=== PATIENT | female | born 2000 | race Caucasian/White ===

== ENCOUNTER 2022-02-13 06:17 | Day surgery (SDC) | payer BC ==
[~2022-02-13] VITALS: Ht 147.3 cm; Wt 130.8 kg
[~2022-02-13 06:17] MED LIST: IBUP400; ONDA4ODT MM
--- NOTE | 2022-02-13 06:59 | NUR ---
02/13/22 0659 More Anderson 2 IV ATTEMPTS BY ALEJANDRINA, 1ST IN L FOREARM INFILTRATED, 2ND IN L AC WAS SUCCESSFUL
[2022-02-13] MEDS ORDERED: METF500 PO (07:02)
== END 2022-02-13 08:42 | disposition home or self-care (01) ==
LOC: ORSCSDS 06:17
PROVIDERS: Obstetrics & Gynecology
PROC: 0UDB8ZX Extraction of Endometrium, Via Natural or Artificial Opening Endoscopic, Diagnostic (ICD-10-PCS; principal; 2022-02-13 07:30)
PROC: 0UB98ZX Excision of Uterus, Via Natural or Artificial Opening Endoscopic, Diagnostic (ICD-10-PCS; principal; 2022-02-13 07:30)
DX: N84.0 Polyp of corpus uteri (principal); E28.2 Polycystic ovarian syndrome; E66.01 Morbid (severe) obesity due to excess calories; Z68.41 Body mass index [BMI] 40.0-44.9, adult; F41.9 Anxiety disorder, unspecified; Z79.899 Other long term (current) drug therapy
CPT/HCPCS: 88305; A9270; J1100; J1885; J2250; J2405; J2704; J2765; J3010; J7120

== ENCOUNTER → 2024-08-29 | Outpatient (CLI) | payer BC ==
[~2024-08-29] MED LIST changes: +METF500 PO
== END ==
LOC: LAB SHORT 17:16 → LAB 17:16
DX: O09.93 Supervision of high risk pregnancy, unspecified, third trimester (principal); Z3A.00 Weeks of gestation of pregnancy not specified
CPT/HCPCS: 87081; 87150

== ENCOUNTER → 2024-09-13 | Outpatient (CLI) | payer BC ==
[2024-09-13 15:35] LABS: Bacterial Vaginosis PCR Negative (NEGATIVE); Candida Group, PCR NOT DETECTED (NOT DETECT); Candida glabrata-krusei, PCR NOT DETECTED (NOT DETECT)
== END ==
LOC: LAB 12:19 → LAB SHORT 12:19
PROVIDERS: Obstetrics & Gynecology
DX: O09.93 Supervision of high risk pregnancy, unspecified, third trimester (principal)
CPT/HCPCS: 87481; 87661; 87801

== ENCOUNTER 2024-09-19 19:58 | Inpatient (IN) | payer BC ==
[~2024-09-19] VITALS: Ht 172.7 cm; Wt 152.2 kg
[2024-09-19] MEDS ORDERED: Methylergonovine Maleate 0.2MG / ML 1ML Amp IM PRN (20:25)
[2024-09-19] MEDS ORDERED: Misoprostol 200 MCG Tab PR PRN (20:25)
[2024-09-19] MEDS ORDERED: OXYTOCIN/RINGER'S LACTATE 500 ML IV PRN (20:25)
[2024-09-19] MEDS ORDERED: FentaNYL 2mcg/ml-Bup 0.1% Epd 250 ML EPI PRN (20:25)
[2024-09-19] MEDS ORDERED: Oxytocin 10 Unit / ML Vial IM PRN (20:25)
[2024-09-19] MEDS ORDERED: OXYTOCIN/RINGER'S LACTATE 500 ML IV SCH (20:25)
[2024-09-19] MEDS ORDERED: Lactated Ringer's 1,000 ML IV PRN ×4 (20:25→20:30)
[2024-09-19] MEDS ORDERED: Tranexamic Acid 100 ML IV SCH (20:25)
[2024-09-19] MEDS ORDERED: Misoprostol 25 MCG Tab VAG PRN (20:25)
[2024-09-19] MEDS ORDERED: Carboprost Tromethamine 250 MCG/ML 1ML Amp IM PRN (20:25)
[2024-09-19] MEDS ORDERED: ePHEDrine Sulfate 50 MG/ML 1ML Injection XX PRN (20:25)
[2024-09-19] MEDS ORDERED: Misoprostol 200 MCG Tab BC PRN (20:25)
[2024-09-19] MEDS ORDERED: Ondansetron HCl 2 MG / ML 2ML Vial IV PRN (20:35)
[2024-09-19] MEDS ORDERED: Calcium Carbonate 500 MG Tab Chew PO PRN (20:35)
[2024-09-19] MEDS ORDERED: Acetaminophen 500 MG Tab PO PRN (20:35)
[2024-09-19] MEDS ORDERED: FentaNYL Citrate 50 MCG/ML 2 ML Injection IV PRN (20:40)
[2024-09-19 23:05] VITALS: BP 129/58
[2024-09-19 23:29] LABS: BASOPHILS ABSOLUTE AUTO 0.03 K/mm3 (0.00-0.23); BASOPHILS PERCENT AUTO 0 % (0-2); EOSINOPHILS ABSOLUTE AUTO 0.06 K/mm3 (0.00-0.68); EOSINOPHILS PERCENT AUTO 1 % (0-6); Hematocrit 41.4 % (33.0-51.0); Hemoglobin 13.8 g/dL (11.5-16.0); IMMATURE GRAN ABSOLUTE AUTO 0.04 K/mm3 (0.00-0.10); IMMATURE GRAN PERCENT AUTO 0 % (0-1); LYMPHOCYTES ABSOLUTE AUTO 2.01 K/mm3 (0.84-5.20); LYMPHOCYTES PERCENT AUTO 21 % (21-46); MONOCYTES ABSOLUTE AUTO 0.37 K/mm3 (0.16-1.47); MONOCYTES PERCENT AUTO 4 % (4-13); Mean Corpuscular HGB 29.3 pg (26.0-34.0); Mean Corpuscular HGB Conc 33.3 g/dL (31.5-36.5); Mean Corpuscular Volume 88 fL (80-100); Mean Platelet Volume 10.6 fL (9.1-12.4); NEUTROPHILS ABSOLUTE AUTO 7.16 K/mm3 (1.96-9.15); NEUTROPHILS PERCENT AUTO 74 % (41-73); Platelet Count 277 K/mm3 (150-400); RDW Coefficient Variation 14.7 % (11.7-14.2); RDW Standard Deviation 47.6 fL (35.1-46.3); Red Blood Cell Count 4.71 M/mm3 (3.80-5.20); White Blood Cell Count 9.67 K/mm3 (4.00-11.30)
[2024-09-20] VITALS (24 sets, daily range): BP systolic 98–142; BP diastolic 51–120
[2024-09-20] MEDS ORDERED: Penicillin G Potassium 5,000,000 UNITS in NS 250 ML IV ONE
[2024-09-20] MEDS ORDERED: Citric Acid/Sodium Citrate 30 ML BTL PO PRN (02:30)
[2024-09-20] MEDS ORDERED: CeFAZolin Sodium 3,000 MG in NS 100 ML IV SCH (02:30)
[2024-09-20] MEDS ORDERED: Metoclopramide HCl 5MG / ML 2ML Vial IV PRN ×2 (02:35→08:40)
[2024-09-20] MEDS ORDERED: Penicillin G Potassium 2,500,000 UNITS in Dextrose 5% 100 ML IV SCH (04:00)
[2024-09-20] MEDS ORDERED: Terbutaline Sulfate 1MG / ML 1 ML Amp ONE (05:59)
[2024-09-20] MEDS ORDERED: Terbutaline Sulfate 1MG / ML 1 ML Amp SC ONE (06:00)
[2024-09-20] MEDS ORDERED: Sodium Bicarb 8.4% 1 MEQ/ML 50 ML Vial ONE (07:41)
[2024-09-20] MEDS ORDERED: Lidocaine HCl 2% 10 ML SDA ONE (07:41)
[2024-09-20] MEDS ORDERED: EpiNEPhrine 1 MG/1 ML 1ML Vial ONE (07:42)
[2024-09-20] MEDS ORDERED: Phenylephrine HCl 100 MCG/ML-NS 10MLSYR (1MG/10ML) ONE (08:01)
[2024-09-20] MEDS ORDERED: ePHEDrine Sulfate 50 MG/ML 1ML Injection ONE (08:04)
[2024-09-20] MEDS ORDERED: Oxytocin 10 Unit / ML Vial ONE (08:09)
--- NOTE | 2024-09-20 08:19 | NUR ---
09/20/24 0819 Ayana Marion VIABLE MALE BORN AT 0808 WITH DOUBLE NUCHAL. APGARS 9/9. WEIGHT [id number]. SEE LABOR RECORD. CORD BLOOD GIVEN TO KANE CACERES AND DR NATARAJAN DECLINED CORD GASES.
[2024-09-20] MEDS ORDERED: Ondansetron HCl 2 MG / ML 2ML Vial IV PRN ×2 (08:40→09:00)
[2024-09-20] MEDS ORDERED: FentaNYL Citrate 50 MCG/ML 2 ML Injection IV PRN ×3 (08:40→08:45)
[2024-09-20] MEDS ORDERED: HYDROmorphone HCl/Pf 1MG SYR IV PRN (08:40)
[2024-09-20] MEDS ORDERED: ePHEDrine Sulfate 50 MG/ML 1ML Injection IV SCH (08:45)
[2024-09-20] MEDS ORDERED: Ketorolac Tromethamine 30mg Vial IV PRN (08:50)
[2024-09-20] MEDS ORDERED: Lactated Ringer's 1,000 ML IV SCH (09:00)
[2024-09-20] MEDS ORDERED: Ketorolac Tromethamine 30mg Vial IV SCH (09:00)
[2024-09-20] MEDS ORDERED: Prenatal Vit/FE Fumarate/FA 1 Tab PO SCH (09:00)
[2024-09-20] MEDS ORDERED: OXYTOCIN/RINGER'S LACTATE 500 ML IV SCH ×2 (09:00→09:10)
[2024-09-20] MEDS ORDERED: Promethazine HCl 25 MG Tab PO PRN (09:05)
[2024-09-20] MEDS ORDERED: Acetaminophen 500 MG Tab PO PRN (09:05)
[2024-09-20] MEDS ORDERED: DiphenhydrAMINE HCL 25 MG Cap PO PRN (09:05)
[2024-09-20] MEDS ORDERED: Carboprost Tromethamine 250 MCG/ML 1ML Amp IM PRN (09:05)
[2024-09-20] MEDS ORDERED: OxyCODONE HCL 5 MG TAB PO PRN (09:05)
[2024-09-20] MEDS ORDERED: Misoprostol 200 MCG Tab PR PRN (09:10)
[2024-09-20] MEDS ORDERED: Rho(D) Immune Globulin 300 MCG / SYR IM SCH (09:10)
[2024-09-20] MEDS ORDERED: Magnesium Hydroxide Conc 10 ML UDC PO PRN (09:10)
[2024-09-20] MEDS ORDERED: Measles/Mumps/Rubella Vaccine 0.5 ML Vial SC SCH (09:10)
[2024-09-20] MEDS ORDERED: Lanolin Cream TOP PRN (09:10)
[2024-09-20] MEDS ORDERED: Methylergonovine Maleate 0.2MG / ML 1ML Amp IM PRN (09:10)
[2024-09-20] MEDS ORDERED: Metoclopramide HCl 10 MG Tab PO PRN (09:15)
[2024-09-20] MEDS ORDERED: Simethicone 80 MG Chew PO PRN (09:15)
[2024-09-20] MEDS ORDERED: Ibuprofen 400 MG Tab PO SCH (16:00)
[2024-09-20] MEDS ORDERED: Docusate Sodium 100 MG Cap PO SCH (21:00)
[2024-09-21] VITALS (9 sets, daily range): BP systolic 108–143; BP diastolic 55–93
--- NOTE | 2024-09-21 04:37 | NUR ---
Epidural stopped and removed. End intact. 188ml epidural infused. Toradol and ramon given to manage pain. Educated provided re pain management. Pt brushing teeth, oral care provided. pt aware when to call nurses if need anything.
[2024-09-21 06:58] LABS: BASOPHILS ABSOLUTE AUTO 0.03 K/mm3 (0.00-0.23); BASOPHILS PERCENT AUTO 0 % (0-2); EOSINOPHILS ABSOLUTE AUTO 0.05 K/mm3 (0.00-0.68); EOSINOPHILS PERCENT AUTO 1 % (0-6); Hematocrit 33.6 % (33.0-51.0); Hemoglobin 10.9 g/dL (11.5-16.0); IMMATURE GRAN ABSOLUTE AUTO 0.03 K/mm3 (0.00-0.10); IMMATURE GRAN PERCENT AUTO 0 % (0-1); LYMPHOCYTES ABSOLUTE AUTO 1.75 K/mm3 (0.84-5.20); LYMPHOCYTES PERCENT AUTO 20 % (21-46); MONOCYTES ABSOLUTE AUTO 0.47 K/mm3 (0.16-1.47); MONOCYTES PERCENT AUTO 5 % (4-13); Mean Corpuscular HGB Conc 32.4 g/dL (31.5-36.5); Mean Corpuscular Volume 89 fL (80-100); Mean Platelet Volume 10.9 fL (9.1-12.4); NEUTROPHILS ABSOLUTE AUTO 6.59 K/mm3 (1.96-9.15); NEUTROPHILS PERCENT AUTO 74 % (41-73); Platelet Count 213 K/mm3 (150-400); RDW Coefficient Variation 15.5 % (11.7-14.2); RDW Standard Deviation 50.3 fL (35.1-46.3); Red Blood Cell Count 3.76 M/mm3 (3.80-5.20); White Blood Cell Count 8.92 K/mm3 (4.00-11.30)
--- NOTE | 2024-09-21 09:15 | NUR ---
SCHWAB CATHETER REMOVED
--- NOTE | 2024-09-21 11:30 | NUR ---
ATTEMPTED TO AMBULATE PATIENT UP TO BATHROOM AND SHOWER, PT DANGLED AT BEDSIDE X 5 MIN THEN STOOD AFTER A FEW MINUTES PT RT LEG BUCKLED, 3 PERSON ASSIST TO GET PT BACK TO BED, SPONGE BATH GIVEN BED LINENS WERE CHANGED, JOSE CARE DONE PAD CHANGED
--- NOTE | 2024-09-21 15:00 | NUR ---
PT PUMPING 1/2 CC COLOSTRUM, TAKEN TO NSY
--- NOTE | 2024-09-21 15:50 | NUR ---
PT STATES HER LEGS FEEL GOOD, DANGLED AT BEDSIDE, STOOD AND DID 4 LEG SQUATS LEGS STRONG, AMBULATED TO BATHROOM ( 2 PERSON ASSIST), PT VOIDED THEN SHOWERED, PT TOLERATED SHOWER WELL, ASSIST WITH PERIPAD AND UNDERWEAR, LINENS CHANGED ON BED
--- NOTE | 2024-09-21 16:15 | NUR ---
PT AND AMBULATED DOWN TO NSY TO VISIT NB
--- NOTE | 2024-09-21 16:45 | NUR ---
PT AND BACK TO ROOM, TOLERATED AMBULATING WELL IS NOW REQUESTING PAIN MEDICATION, IBUPROFEN 800MG AND ROXICODONE 10 MG GIVEN PO
--- NOTE | 2024-09-21 17:55 | NUR ---
PT UP AMBULATING AROUND ROOM HAVING GOOD PAIN CONTROL ON PO MEDS ENCOURAGED TO PUMP EVERY 2-3 HR TO SIMULATE BREAST FEEDING FOR MILK PRODUCTION
--- NOTE | 2024-09-21 18:47 | NUR ---
PT DOING WELL UP AMBUALTING AROUND ROOM AND DOWN TO NSY W/O DIFFICULTY, SHE IS NOW GOING TO PUMP AGAIN, HAVING GOOD CONTROL WITH PO MEDS, REPT TO ON COMING SHIFT
--- NOTE | 2024-09-21 19:49 | NUR ---
Pt ambulating in room, pumped 1/2 cc colastrum, denies pain or any further needs at this time
--- NOTE | 2024-09-21 21:21 | NUR ---
Pt ambulating in room, abdominal binder placed on pain medication given for a pain 03/30, pt pumping, denies any further needs
--- NOTE | 2024-09-22 00:06 | NUR ---
pt denies any needs at this time, she is sitting up holding tending to his needs while fob is resting, she is ambulating well in room, using the bathroom, pt states she is passing flatus and does not need medications for this at this time.
--- NOTE | 2024-09-22 02:13 | NUR ---
Pt feeding and tending to newborns needs, does have some incisional pain rating it a 7, pain medication were administered
[2024-09-22 06:03] VITALS: BP 103/60
--- NOTE | 2024-09-22 06:21 | NUR ---
Pt has been resting well, denies any needs at this time, she is bonding and feeding infant breast and bottle
--- NOTE | 2024-09-22 06:23 | NUR ---
recieved report from Orin CACERES
[2024-09-22 07:52] VITALS: BP 118/74
[2024-09-22 12:18] VITALS: BP 131/79
[2024-09-22 15:40] VITALS: BP 138/79
== END 2024-09-22 17:35 | disposition home or self-care (01) | DRG 787 ==
LOC: OBS 19:58 → BC 20:04 → OBS 20:10 → BC 20:11
PROVIDERS: ADMIT Obstetrics & Gynecology
PROC: 10D00Z1 Extraction of Products of Conception, Low, Open Approach (ICD-10-PCS; principal; 2024-09-20 07:30)
DX: O76 Abnormality in fetal heart rate and rhythm complicating labor and delivery (principal); D62 Acute posthemorrhagic anemia; Z3A.39 39 weeks gestation of pregnancy; Z37.0 Single live birth; O99.214 Obesity complicating childbirth; O99.824 Streptococcus B carrier state complicating childbirth; Z90.49 Acquired absence of other specified parts of digestive tract; Z98.890 Other specified postprocedural states; Z91.048 Other nonmedicinal substance allergy status; Z79.82 Long term (current) use of aspirin; Z79.899 Other long term (current) drug therapy; Z79.84 Long term (current) use of oral hypoglycemic drugs; O90.81 Anemia of the puerperium; O69.81X0 Labor and delivery complicated by cord around neck, without compression, not applicable or unspecified
CPT/HCPCS: 36415; 85025; A9270; J0171; J1885; J2003; J2371; J2540; J2590; J3105; J7050; J7120